=== PATIENT | female | born 1995 | race Caucasian/White ===

== ENCOUNTER 2022-12-12 07:52 | Inpatient (IN) ==
[2022-12-12] MEDS ORDERED: OXYTOCIN 30 UNITS/500 ML BAG IV PRN (08:09)
[2022-12-12] MEDS ORDERED: LIDOCAINE 1% LOCAL 20 ML VIAL INFIL PRN (08:09)
[2022-12-12 09:00] LABS: Hematocrit (blood only) 32.3 % (37.0-47.0); Hemoglobin 10.9 g/dl (12.0-16.0); Mean Corpuscular Hemoglobin 29.8 pg (25.0-34.0); Mean Corpuscular Hgb Conc 33.7 g/dL (32.0-36.0); Mean Corpuscular Volume 88.3 fL (80.0-100.0); Mean Platelet Volume 11.5 fL (9.4-12.4); Platelet Count 276 K/uL (130-400); RDW Coefficient of Variation 15.3 % (11.5-14.5); RDW Standard Deviation 49.1 fL (36.4-46.3); Red Blood Count 3.66 M/uL (4.20-5.40); White Blood Count 9.56 K/ul (4.8-10.8)
[2022-12-12] MEDS: OXYTOCIN 30 UNITS/500 ML BAG IV PRN (10:10)
--- NOTE | 2022-12-12 11:57 | History & Physical Report ---
Date of Service December 12, 2022 Assessment & Plan (1) Supervision of normal first : Plan: IUP at 39-5/7 weeks for induction of labor because SLE history. A cervical balloon was successfully placed the morning of admission. Begin Pitocin augmentation of her labor. Epidural when requested. Anticipate vaginal . Admission and Anticipated Discharge Date Admission Date: December 12, 2022 History of Present Illness Primary Care Provider: Roseanne Sagastume MD Patient is a 27-year-old G1, P0 female EDC 12/14/2022 who presents for induction of labor because her has been complicated by SLE history. SSA and SSB antibodies were negative. testing has been reassuring. Last growth scan at 36 weeks reveals an AGA . GBS negative. Her cervix was noted to be unfavorable the day prior to her induction. The cervical balloon will be placed today prior to starting Pitocin augmentation of her labor. Allergies Allergy/AdvReac Type Severity Reaction Status Date / Time No Known Drug Allergies Allergy Unknown Verified 12/12/22 08:14 tree nut Allergy Anaphylaxis Verified 12/12/22 08:14 Home Medications Medication Instructions Recorded Confirmed Type hydroxychloroquine 200 mg tablet 400 mg PO HS 01/30/21 12/12/22 History aspirin 81 mg tablet,delayed 81 mg PO DAILY 04/30/22 12/12/22 History release prenat.vits,keturah,[id number] 1 tab PO DAILY 05/07/22 12/12/22 History pyridoxine (vitamin B6) 1 tab PO DAILY 06/09/22 12/12/22 History doxylamine succinate 25 mg tablet 25 mg PO Q6H PRN Nausea And 07/30/22 12/12/22 History (Unisom (doxylamine)) Vomiting metoclopramide HCl 10 mg tablet 10 mg PO TID PRN nausea and 12/04/22 12/12/22 Rx (Reglan) vomiting #60 tabs Patient History Medical History (Updated 12/12/22 @ 08:13 by Miguelina Jurado RN) Anxiety was on meds prior to Depression was on meds prior to History of migraine headaches no meds IBS (irritable bowel syndrome) Low lying placenta without hemorrhage, antepartum resolved at 28 weeks Lupus on hydroxychloroquine Varicella vaccination Surgical History History of anesthesia reaction Woke up in panic attack S/P wisdom tooth extraction Family History Grandfather Colorectal cancer Mother Genetic disorder IBS (irritable bowel syndrome) Grandmother (Maternal) Ovarian cancer Grandfather (Maternal) Colon cancer Father No problems noted. Other No pertinent family history Denies family history of Prostate cancer Myocardial infarction Breast cancer Social History (Updated 12/12/22 @ 08:14 by Miguelina Jurado RN) Smoking Status: Never smoker Second Hand Exposure: No; Hx Alcohol Use: No Hx Substance Use: No Preferred Language: Khmer Communication Ability: Effective Visual Impairment: No Limitations Hearing Ability: Normal Auto Body Mechanic Required: No Beliefs That Will Affect Care: None marital status: Single marital status details: ayaz Gonzalez (27) [phone] Current Living Situation: Significant Other and Other Current Living Situation Comment: lives with fob, roomate, dog, parakeet current occupational status: employed and student current occupation: Grad student and instructor [employer] Feels Safe at Home: Yes Safety Concerns: Feels Safe At This Time Childhood Exposure to Second-Hand Smoke: No Dental Care, Regularly: Yes Physical Activity Frequency: 3-4 Times per Week Seatbelt Use: always Sunscreen Use: Yes Assistive Devices: Glasses Review of Systems All systems reviewed & are unremarkable except as noted in HPI & below Physical Exam Constitutional: WD/WN, vitals as above Psychiatric: A+Ox3, euthymic affect Genitourinary: OB Exam Abdomen: + vertex, + estimated weight (8-9 pounds ) and + irregular contractions (rare) Manual OB Exam: + cervical dilation fingertip, + cervical effacement 50% and + station -1 OB Exam Monitor Tracing: + external FHT monitor used, + external uterine monitor used, + category I and + normal FHT variability A speculum was placed vaginally and the cervix was visualized. A Rivera catheter was placed to the level of the internal os. The balloon was then filled with 40 cc of sterile water. The catheter was then placed on traction and secured to her left thigh. Patient tolerated the procedure well. Results & Data Vital Signs (Past 12 Hours) Vital Signs Temp Pulse Resp BP 12/12/22 11:12 78 115/73 12/12/22 10:12 85 115/71 12/12/22 08:26 89 109/69 12/12/22 08:09 98.1 F 18 Coding Level of Care Code None Diagnoses Supervision of normal first Z34.00
[2022-12-12] MEDS ORDERED: BUTORPHANOL TARTRATE 1 MG/ML VIAL IV PRN (13:59)
--- NOTE | 2022-12-12 16:05 | Labor Progress Brief Note ---
Date of Service December 12, 2022 Subjective cervical balloon delivered pitocin at 10 mu FHT's Category 1 cervix exam- 4-5cm/80/-2 AROM for very light mec stained fluid epidural when requested Assessment & Plan Admission and Anticipated Discharge Date Admission Date: December 12, 2022 Results & Data Vital Signs (Past 12 Hours) Vital Signs Temp Pulse Resp BP 12/12/22 15:04 16 12/12/22 15:04 98.1 F 16 12/12/22 15:20 77 107/65 12/12/22 14:13 88 114/82 12/12/22 13:12 86 112/76 12/12/22 12:13 77 115/73 12/12/22 11:00 16 12/12/22 11:00 98.1 F 16 12/12/22 11:12 78 115/73 12/12/22 10:12 85 115/71 12/12/22 08:26 89 109/69 12/12/22 08:09 98.1 F 18 Coding Level of Care Code None Diagnoses
[2022-12-12] MEDS: LACTATED RINGER'S 1,000 ML IV PRN ×3 (18:01→23:00)
[2022-12-12] MEDS ORDERED: fentaNYL citrate PF 100 MCG/2 ML VIAL ONE (18:08)
[2022-12-12] MEDS ORDERED: ePHEDrine sulfate 50 MG/ML AMP ONE (18:08)
[2022-12-12] MEDS ORDERED: SODIUM CHLORIDE 0.9% PF INJ 10 ML VIAL ONE (18:08)
[2022-12-12] MEDS ORDERED: LIDOCAINE 2%/EPINEPHRINE 1:200,000 20 ML PF ONE (18:09)
[2022-12-12] MEDS ORDERED: fentaNYL 2MCG/ML ROPIVACAINE 1.25MG/ML 100 ML BAG EPI ONE (18:09)
[2022-12-12] MEDS ORDERED: BUPIVACAINE 0.25% PF 30 ML VIAL ONE (18:09)
[2022-12-12] MEDS ORDERED: ePHEDrine sulfate 50 MG/ML AMP IV PRN (18:22)
[2022-12-12] MEDS ORDERED: NALOXONE HCL 0.4 MG/1 ML VIAL/CARP IV PRN (18:22)
[2022-12-12] MEDS ORDERED: ONDANSETRON INJ 2 MG/ML 2 ML VIAL IV PRN (18:22)
[2022-12-12] MEDS ORDERED: NALBUPHINE HCL INJ 10 MG/ML AMP IV PRN (18:22)
[2022-12-12] MEDS ORDERED: diphenhydrAMINE 50 MG/ML VIAL IV PRN (18:22)
[2022-12-12] MEDS ORDERED: NALOXONE HCL 1 MG in SODIUM CHLORIDE 0.9% 1000ML 1,000 ML IV PRN (18:22)
--- NOTE | 2022-12-12 18:22 | Anesthesiology Consultation ---
Date of Service December 12, 2022 Assessment & Plan ASA ASA3 Proposed Anesthesia Anesthesia Type: Labor Epidural Risk / Benefits Reviewed With: PT / POA / Parent / Guardian, Accepts Plan and Informed Consent Obtained History Height/Weight Height: 5 ft 11 in Weight: 101.605 kg Allergies Allergy/AdvReac Type Severity Reaction Status Date / Time No Known Drug Allergies Allergy Unknown Verified 12/12/22 08:14 tree nut Allergy Anaphylaxis Verified 12/12/22 08:14 Medications Home Medications Medication Instructions Recorded Confirmed Last Taken hydroxychloroquine 200 mg tablet 400 mg PO HS 01/30/21 12/12/22 12/12/22 aspirin 81 mg tablet,delayed 81 mg PO DAILY 04/30/22 12/12/22 12/12/22 release prenat.vits,keturah,duo-[id number]-aucrc 1 tab PO DAILY 05/07/22 12/12/22 12/12/22 pyridoxine (vitamin B6) 1 tab PO DAILY 06/09/22 12/12/22 12/12/22 doxylamine succinate 25 mg tablet 25 mg PO Q6H PRN Nausea And 07/30/22 12/12/22 12/12/22 (Unisom (doxylamine)) Vomiting metoclopramide HCl 10 mg tablet 10 mg PO TID PRN nausea and 12/04/22 12/12/22 12/12/22 (Reglan) vomiting #60 tabs Active Medications Generic Name Dose Route Start Last Admin Trade Name Freq PRN Reason Stop Dose Admin Lactated Ringer's 1,000 mls @ 125 mls/hr 12/12/22 08:09 12/12/22 18:42 Lr IV 12/14/22 08:08 125 mls/hr .Q8H PRN Infusion L&D Protocol Protocol Oxytocin 30 units in 500 mls @ 16 mls/hr 12/12/22 08:12 12/12/22 17:10 Pitocin IV 12/14/22 08:11 0.96 units/hr .Q24H PRN 16 mls/hr Labor Induction/Augmentation Titration Protocol 0.96 UNITS/HR Past Medical History Medical History Anxiety was on meds prior to Depression was on meds prior to History of migraine headaches no meds IBS (irritable bowel syndrome) Low lying placenta without hemorrhage, antepartum resolved at 28 weeks Lupus on hydroxychloroquine Varicella vaccination Exercise / Class Metabolic Activity II 4-5 Yardwork/Stairs/Walk up hill Past Family History Family History Grandfather Colorectal cancer Mother Genetic disorder grandfather: colon polyps mother IBS (irritable bowel syndrome) Grandmother (Maternal) Ovarian cancer Grandfather (Maternal) Colon cancer Father No problems noted. Other No pertinent family history Denies family history of Prostate cancer Myocardial infarction Breast cancer Past Surgical History Surgical History History of anesthesia reaction Woke up in panic attack S/P wisdom tooth extraction Past Anesthesia History No Hx of Anesthesia Complications and No Family Hx of Anesthesia Complications History of PONV No Hx of PONV and No Hx of Motion Sickness Social History Smoking Status: Never smoker Hx Alcohol Use: No Hx Substance Use: No substance use type: does not use Review of Systems denies fever/cough/ colds/ chest pain/ SOB/ ANALI denies ANALI Physical Exam Vital Signs Last Vital Signs Temp 36.6 C 12/12/22 17:00 Pulse 91 H 12/12/22 19:02 Resp 16 12/12/22 15:04 BP 116/76 12/12/22 19:02 Pulse Ox 98 12/12/22 19:01 ENMT Mouth: no TMJ abnormality and no dentition abnormality Thyromental Distance: > or= 3.5 Finger Breadths Mallampati Class: II Neck neck extension not limited Respiratory normal respiratory effort; no respiratory distress Auscultation: lungs clear to auscultation bilaterally Cardiovascular Rate/Rhythm: regular rate and regular rhythm Neurologic moves all extremities Psychiatric Orientation: alert and oriented x 3 Testing Laboratory Results 12/12/22 08:35
[2022-12-12] MEDS: HYDROXYCHLOROQUINE SULFATE 200 MG TAB PO SCH (21:06)
[2022-12-13] MEDS: OXYTOCIN 30 UNITS/500 ML BAG IV PRN (00:36)
[2022-12-13] MEDS ORDERED: ACETAMINOPHEN 500 MG TAB ONE (01:05)
[2022-12-13] MEDS: ACETAMINOPHEN 500 MG TAB PO PRN ×2 (01:07→09:10)
[2022-12-13] MEDS: fentaNYL 2MCG/ML ROPIVACAINE 1.25MG/ML 100 ML BAG EPI PRN ×2 (01:50→06:17)
--- NOTE | 2022-12-13 02:57 | Labor Progress Brief Note ---
Date of Service December 13, 2022 Subjective pit had been temporarily stopped for 30 minutes at midnight because of inadequate ctn pattern and pit at 30 milliunits pit restarted and now at 21 milliunits contractions are every 2- 4 minutes mild to moderate she is now feeling more pelvic pressure cervix exam 7cm/90/-2 FHT's category 1 will continue with pitocin augmentation Assessment & Plan Admission and Anticipated Discharge Date Admission Date: December 12, 2022 Results & Data Vital Signs (Past 12 Hours) Vital Signs Temp Pulse Resp BP Pulse Ox 12/12/22 19:00 18 12/12/22 19:10 97.9 F 18 12/13/22 02:51 112 H 97 12/13/22 02:46 92 H 97 12/13/22 02:41 99 H 98 12/13/22 02:40 102 H 108/71 12/13/22 02:36 90 98 12/13/22 02:30 18 12/13/22 02:30 18 12/13/22 02:31 94 H 98 12/13/22 02:26 97 H 97 12/13/22 02:24 90 112/66 12/13/22 02:20 97.9 F 12/13/22 02:21 91 H 98 12/13/22 02:16 95 H 98 12/13/22 02:11 90 97 12/13/22 02:08 88 113/64 12/13/22 02:06 92 H 97 12/13/22 02:00 18 12/13/22 02:00 18 12/13/22 02:01 94 H 97 12/13/22 01:56 98 H 98 12/13/22 01:53 99 H 105/68 12/13/22 01:51 100 H 96 12/13/22 01:46 121 H 97 12/13/22 01:41 90 97 12/13/22 01:39 92 H 108/64 12/13/22 01:30 18 12/13/22 01:30 18 12/13/22 01:36 96 H 98 12/13/22 01:31 93 H 98 12/13/22 01:26 94 H 98 12/13/22 01:23 97 H 109/64 12/13/22 01:21 91 H 98 12/13/22 01:16 98 H 99 12/13/22 01:11 99 H 98 12/13/22 01:09 90 103/57 L 12/13/22 01:06 94 H 99 12/13/22 01:01 94 H 98 12/13/22 01:00 20 12/13/22 01:00 20 12/13/22 00:56 97 H 99 12/13/22 00:30 18 12/13/22 00:30 18 12/13/22 00:53 93 H 98/55 L 12/13/22 00:51 94 H 99 12/13/22 00:46 94 H 98 12/13/22 00:41 116 H 98 12/13/22 00:39 109/62 12/13/22 00:36 90 98 12/13/22 00:31 94 H 98 12/13/22 00:26 93 H 98 12/13/22 00:24 93 H 91/50 L 12/13/22 00:21 93 H 98 12/13/22 00:16 94 H 99 12/13/22 00:11 97 H 98 12/13/22 00:08 93 H 100/56 L 12/13/22 00:06 94 H 97 12/13/22 00:01 96 H 99 12/13/22 00:00 18 12/13/22 00:00 98.4 F 18 12/12/22 23:56 94 H 99 12/12/22 23:53 89 102/58 L 12/12/22 23:51 91 H 98 12/12/22 23:00 20 12/12/22 23:00 20 12/12/22 23:46 96 H 98 12/12/22 23:41 98 H 98 12/12/22 23:38 95 H 100/58 L 12/12/22 23:36 91 H 99 12/12/22 23:31 97 H 100 12/12/22 23:26 110 H 99 12/12/22 23:27 116 H 92 12/12/22 23:24 85 111/57 L 12/12/22 23:21 89 98 12/12/22 23:16 89 98 12/12/22 23:11 89 98 12/12/22 23:08 92 H 108/59 L 12/12/22 23:06 84 98 12/12/22 23:01 91 H 98 12/12/22 22:56 97 H 106/50 L 100 12/12/22 22:51 102 H 99 12/12/22 22:46 95 H 100 12/12/22 22:41 84 98 12/12/22 22:30 18 12/12/22 22:30 18 12/12/22 22:38 80 91/50 L 12/12/22 22:36 92 H 99 12/12/22 22:31 84 100 12/12/22 22:26 83 94/50 L 98 12/12/22 22:24 81 88/51 L 12/12/22 22:21 86 92 12/12/22 22:00 18 12/12/22 22:00 18 12/12/22 22:16 89 100 12/12/22 22:11 82 99 12/12/22 22:10 93 12/12/22 22:10 82 12/12/22 22:10 82 92/56 L 12/12/22 22:06 90 100 12/12/22 22:01 73 99 12/12/22 21:56 78 99 12/12/22 21:53 73 107/66 12/12/22 21:51 77 98 12/12/22 21:46 78 98 12/12/22 21:41 79 98 12/12/22 21:39 78 106/67 12/12/22 21:36 84 98 12/12/22 21:30 20 12/12/22 21:30 20 12/12/22 21:31 89 99 12/12/22 21:26 94 H 100 12/12/22 21:24 82 105/58 L 12/12/22 21:21 79 100 12/12/22 21:10 97.7 F 12/12/22 21:00 18 12/12/22 21:00 18 12/12/22 21:16 80 100 12/12/22 21:11 83 99 12/12/22 21:06 77 99 12/12/22 21:01 80 108/63 99 12/12/22 20:57 77 107/60 12/12/22 20:56 75 99 12/12/22 20:51 81 102/58 L 98 12/12/22 20:47 75 101/59 L 12/12/22 20:46 77 98 12/12/22 20:41 99 12/12/22 20:41 78 12/12/22 20:41 77 102/64 12/12/22 20:36 77 99 12/12/22 20:37 78 106/64 12/12/22 20:31 83 110/64 99 12/12/22 20:27 80 115/60 12/12/22 20:26 75 97 12/12/22 20:00 20 12/12/22 20:00 20 12/12/22 20:22 77 107/72 12/12/22 20:23 75 113/60 12/12/22 20:21 85 98 12/12/22 20:16 89 98 12/12/22 20:17 88 92/56 L 12/12/22 20:11 79 99/60 L 98 12/12/22 20:07 77 105/59 L 12/12/22 20:06 76 98 12/12/22 20:01 84 99 12/12/22 20:02 83 102/58 L 12/12/22 19:56 76 98 12/12/22 19:57 76 103/57 L 12/12/22 19:51 71 99 12/12/22 19:52 72 98/59 L 12/12/22 19:48 81 103/62 12/12/22 19:46 82 97 12/12/22 19:43 83 102/61 12/12/22 19:41 82 98 12/12/22 19:36 98 12/12/22 19:36 91 H 12/12/22 19:36 88 103/61 12/12/22 19:30 18 12/12/22 19:30 18 12/12/22 19:31 84 98 12/12/22 19:32 83 104/61 12/12/22 19:26 89 99 12/12/22 19:27 85 103/55 L 12/12/22 19:21 94 H 99 12/12/22 19:20 83 104/61 12/12/22 19:18 88 100/60 12/12/22 19:16 89 106/66 98 12/12/22 19:14 86 110/64 12/12/22 19:12 82 100/57 L 12/12/22 19:11 97 12/12/22 19:11 84 12/12/22 19:11 90 91/62 L 12/12/22 19:08 88 112/64 12/12/22 19:06 96 H 12/12/22 19:06 93 H 111/65 97 12/12/22 19:04 90 112/70 12/12/22 19:02 91 H 116/76 12/12/22 19:01 90 98 12/12/22 19:00 89 111/68 12/12/22 18:58 88 106/62 12/12/22 18:56 92 H 100 12/12/22 18:57 95 H 103/67 12/12/22 18:51 81 100 12/12/22 18:46 84 98 12/12/22 18:41 89 100 12/12/22 18:36 88 98 12/12/22 18:31 88 99 12/12/22 18:26 89 99 12/12/22 18:12 81 106/61 12/12/22 17:15 90 113/71 12/12/22 17:00 97.9 F 12/12/22 16:13 83 113/73 12/12/22 15:04 16 12/12/22 15:04 98.1 F 16 12/12/22 15:20 77 107/65 Coding Level of Care Code None Diagnoses
[2022-12-13] MEDS: LACTATED RINGER'S 1,000 ML IV PRN (04:50)
[2022-12-13] MEDS ORDERED: NURSING L&D Epidural Breakthrough Pain Update ONE (04:51)
[2022-12-13] MEDS ORDERED: METOCLOPRAMIDE HCL INJ 5 MG/ML 2 ML VIAL IV STA (07:17)
--- NOTE | 2022-12-13 07:18 | Labor Progress Brief Note ---
Date of Service December 13, 2022 Subjective Reason For Note: Routine Evaluation continues to feel pressure now but no more intense pit at 23 milliunits Q2-3 minute ctns FHT's category 1 very nauseous- will give Reglan IV as zofran can interact with hydroxychloroquine cervix exam: /-1 with molding continue with induction Assessment & Plan Admission and Anticipated Discharge Date Admission Date: December 12, 2022 Results & Data Vital Signs (Past 12 Hours) Vital Signs Temp Pulse Resp BP Pulse Ox 12/13/22 07:11 107 H 98 12/13/22 07:09 108 H 106/64 12/13/22 07:06 110 H 99 12/13/22 07:01 111 H 97 12/13/22 06:56 106 H 100 12/13/22 06:54 107 H 116/62 89 L 12/13/22 06:51 105 H 100 12/13/22 06:46 107 H 98 12/13/22 06:41 106 H 98 12/13/22 06:38 103 H 118/64 12/13/22 06:36 107 H 97 12/13/22 06:31 103 H 98 12/13/22 06:26 110 H 100 12/13/22 06:24 109 H 132/75 12/13/22 06:21 108 H 97 12/13/22 06:15 98.2 F 12/13/22 06:16 109 H 99 12/13/22 06:11 128 H 139/94 98 12/13/22 06:06 112 H 100 12/13/22 06:01 118 H 99 12/13/22 05:56 114 H 98 12/13/22 05:54 112 H 119/75 12/13/22 05:51 119 H 98 12/13/22 05:46 120 H 98 12/13/22 05:41 122 H 98 12/13/22 05:38 121 H 119/62 12/13/22 05:36 119 H 98 12/13/22 05:31 125 H 98 12/13/22 05:26 108 H 98 12/13/22 05:23 107 H 123/65 12/13/22 05:21 102 H 99 12/13/22 05:16 102 H 98 12/13/22 05:11 100 H 98 12/13/22 05:08 95 H 121/69 04/15/23 05:06 98 H 97 12/13/22 05:01 103 H 98 12/13/22 04:56 102 H 98 12/13/22 04:54 101 H 125/73 12/13/22 04:51 105 H 98 12/13/22 04:46 127 H 97 12/13/22 04:41 102 H 97 12/13/22 04:39 109 H 114/72 12/13/22 04:36 99 H 96 12/13/22 04:31 98 H 96 12/13/22 04:26 97 H 96 12/13/22 04:23 96 H 101/57 L 12/13/22 04:21 99 H 96 12/13/22 04:16 97 H 97 12/13/22 04:11 95 H 97 12/13/22 04:08 88 101/60 12/13/22 04:06 93 H 98 12/13/22 04:00 18 12/13/22 04:00 18 12/13/22 04:01 104 H 98 12/13/22 03:56 87 96 12/13/22 03:54 93 H 100/58 L 90 12/13/22 03:51 90 96 12/13/22 03:46 90 96 12/13/22 03:41 88 96 12/13/22 03:38 88 95/51 L 94 12/13/22 03:36 90 95 12/13/22 03:31 91 H 96 12/13/22 03:26 93 H 98 12/13/22 03:24 90 105/58 L 12/13/22 03:21 91 H 97 12/13/22 03:16 90 97 12/13/22 03:11 91 H 97 12/13/22 03:08 86 102/59 L 12/13/22 03:06 90 97 12/13/22 03:01 89 97 12/13/22 02:56 88 97 12/13/22 02:54 91 H 108/57 L 12/13/22 02:51 112 H 97 12/13/22 02:46 92 H 97 12/13/22 02:41 99 H 98 12/13/22 02:40 102 H 108/71 12/13/22 02:36 90 98 12/13/22 02:30 18 12/13/22 02:30 18 12/13/22 02:31 94 H 98 12/13/22 02:26 97 H 97 12/13/22 02:24 90 112/66 12/13/22 02:20 97.9 F 12/13/22 02:21 91 H 98 12/13/22 02:16 95 H 98 12/13/22 02:11 90 97 12/13/22 02:08 88 113/64 12/13/22 02:06 92 H 97 12/13/22 02:00 18 12/13/22 02:00 18 12/13/22 02:01 94 H 97 12/13/22 01:56 98 H 98 12/13/22 01:53 99 H 105/68 12/13/22 01:51 100 H 96 12/13/22 01:46 121 H 97 12/13/22 01:41 90 97 12/13/22 01:39 92 H 108/64 12/13/22 01:30 18 12/13/22 01:30 18 12/13/22 01:36 96 H 98 12/13/22 01:31 93 H 98 12/13/22 01:26 94 H 98 12/13/22 01:23 97 H 109/64 12/13/22 01:21 91 H 98 12/13/22 01:16 98 H 99 12/13/22 01:11 99 H 98 12/13/22 01:09 90 103/57 L 12/13/22 01:06 94 H 99 12/13/22 01:01 94 H 98 12/13/22 01:00 20 12/13/22 01:00 20 12/13/22 00:56 97 H 99 12/13/22 00:30 18 12/13/22 00:30 18 12/13/22 00:53 93 H 98/55 L 12/13/22 00:51 94 H 99 12/13/22 00:46 94 H 98 12/13/22 00:41 116 H 98 12/13/22 00:39 109/62 12/13/22 00:36 90 98 12/13/22 00:31 94 H 98 12/13/22 00:26 93 H 98 12/13/22 00:24 93 H 91/50 L 12/13/22 00:21 93 H 98 12/13/22 00:16 94 H 99 12/13/22 00:11 97 H 98 12/13/22 00:08 93 H 100/56 L 12/13/22 00:06 94 H 97 12/13/22 00:01 96 H 99 12/13/22 00:00 18 12/13/22 00:00 98.4 F 18 12/12/22 23:56 94 H 99 12/12/22 23:53 89 102/58 L 12/12/22 23:51 91 H 98 12/12/22 23:00 20 12/12/22 23:00 20 12/12/22 23:46 96 H 98 12/12/22 23:41 98 H 98 12/12/22 23:38 95 H 100/58 L 12/12/22 23:36 91 H 99 12/12/22 23:31 97 H 100 12/12/22 23:26 110 H 99 12/12/22 23:27 116 H 92 12/12/22 23:24 85 111/57 L 12/12/22 23:21 89 98 12/12/22 23:16 89 98 12/12/22 23:11 89 98 12/12/22 23:08 92 H 108/59 L 12/12/22 23:06 84 98 12/12/22 23:01 91 H 98 12/12/22 22:56 97 H 106/50 L 100 12/12/22 22:51 102 H 99 12/12/22 22:46 95 H 100 12/12/22 22:41 84 98 12/12/22 22:30 18 12/12/22 22:30 18 12/12/22 22:38 80 91/50 L 12/12/22 22:36 92 H 99 12/12/22 22:31 84 100 12/12/22 22:26 83 94/50 L 98 12/12/22 22:24 81 88/51 L 12/12/22 22:21 86 92 12/12/22 22:00 18 12/12/22 22:00 18 12/12/22 22:16 89 100 12/12/22 22:11 82 99 12/12/22 22:10 93 12/12/22 22:10 82 12/12/22 22:10 82 92/56 L 12/12/22 22:06 90 100 04/14/23 22:01 73 99 12/12/22 21:56 78 99 12/12/22 21:53 73 107/66 12/12/22 21:51 77 98 12/12/22 21:46 78 98 12/12/22 21:41 79 98 12/12/22 21:39 78 106/67 12/12/22 21:36 84 98 12/12/22 21:30 20 12/12/22 21:30 20 12/12/22 21:31 89 99 12/12/22 21:26 94 H 100 12/12/22 21:24 82 105/58 L 12/12/22 21:21 79 100 12/12/22 21:10 97.7 F 12/12/22 21:00 18 12/12/22 21:00 18 12/12/22 21:16 80 100 12/12/22 21:11 83 99 12/12/22 21:06 77 99 12/12/22 21:01 80 108/63 99 12/12/22 20:57 77 107/60 12/12/22 20:56 75 99 12/12/22 20:51 81 102/58 L 98 12/12/22 20:47 75 101/59 L 12/12/22 20:46 77 98 12/12/22 20:41 99 12/12/22 20:41 78 12/12/22 20:41 77 102/64 12/12/22 20:36 77 99 12/12/22 20:37 78 106/64 12/12/22 20:31 83 110/64 99 12/12/22 20:27 80 115/60 12/12/22 20:26 75 97 12/12/22 20:00 20 12/12/22 20:00 20 12/12/22 20:22 77 107/72 12/12/22 20:23 75 113/60 12/12/22 20:21 85 98 12/12/22 20:16 89 98 12/12/22 20:17 88 92/56 L 12/12/22 20:11 79 99/60 L 98 12/12/22 20:07 77 105/59 L 12/12/22 20:06 76 98 12/12/22 20:01 84 99 12/12/22 20:02 83 102/58 L 04/14/23 19:56 76 98 12/12/22 19:57 76 103/57 L 12/12/22 19:51 71 99 12/12/22 19:52 72 98/59 L 12/12/22 19:48 81 103/62 12/12/22 19:46 82 97 12/12/22 19:43 83 102/61 12/12/22 19:41 82 98 12/12/22 19:36 98 12/12/22 19:36 91 H 12/12/22 19:36 88 103/61 12/12/22 19:30 18 12/12/22 19:30 18 12/12/22 19:31 84 98 12/12/22 19:32 83 104/61 12/12/22 19:26 89 99 12/12/22 19:27 85 103/55 L 12/12/22 19:21 94 H 99 12/12/22 19:20 83 104/61 12/12/22 19:18 88 100/60 12/12/22 19:16 89 106/66 98 Coding Level of Care Code None Diagnoses
[2022-12-13] MEDS ORDERED: METOCLOPRAMIDE HCL INJ 5 MG/ML 2 ML VIAL ONE ×2 (07:20→10:26)
[2022-12-13] MEDS ORDERED: CITRIC ACID/SODIUM CITRATE 15 ML UDC ONE (10:25)
[2022-12-13] MEDS ORDERED: PHENYLEPHRINE HCL 10 MG/ML VIAL ONE (10:26)
[2022-12-13] MEDS ORDERED: OXYTOCIN 10 UNITS/ML 10ML VIAL ONE ×5 (10:26→11:36)
[2022-12-13] MEDS ORDERED: MoRPHine SULFATE PF 1 MG/ML 10 ML AMP/VIAL ONE (10:26)
[2022-12-13] MEDS ORDERED: fentaNYL citrate PF 100 MCG/2 ML VIAL ONE (10:26)
[2022-12-13] MEDS ORDERED: ePHEDrine sulfate 50 MG/ML AMP ONE (10:26)
[2022-12-13] MEDS ORDERED: CITRIC ACID/SODIUM CITRATE 15 ML UDC PO SCH (10:30)
[2022-12-13] MEDS ORDERED: LACTATED RINGER'S 1,000 ML IV SCH (10:30)
--- NOTE | 2022-12-13 10:30 | Labor Progress Brief Note ---
Date of Service December 13, 2022 Subjective Patient comfortable with epidural, has no sensation of pelvic pressure right now. Assessment & Plan (1) Failure to progress in labor: Plan: Course of labor reviewed with prior MD at hand-off, in room with patient / mom / FOB / RN as well. Re-examined now, with no evidence of change. Patient is fatigued and frustrated/concerned with slow progress and course of labor. Patient's mom voices concerns about possible inability to deliver vaginally. Nikolai pattern too frequent to allow increased dosing of pitocin without IUPC at this time. We reviewed options: Reposition to attempt to return to a Cat 1 F[address], then place IUPC and continue to titrate to adequate MVU. Explained pelvis/passenger/power and that we can try to work on "power" aspect by replacing IUPC. Other option is to move to without further attempts at IOL. Discussed there is not currently an emergency that forces our move to , it's reasonable to choose either of the above options, and answered all questions from patient/mom/FOB to their stated satisfaction, then left the room to allow them to discuss and decide. The choice was made and communicated to staff that patient wanted to proceed to . Admission and Anticipated Discharge Date Admission Date: December 12, 2022 Physical Exam Genitourinary: Cervix unchanged from prior exam. FHT 155 mod [place] +acc +late decels Significant molding noted Nikolai Q1-2, sometimes poorly traced with external Pit @ 23 [address] with red-stained urine in bag Results & Data Vital Signs (Past 12 Hours) Vital Signs Temp Pulse Resp BP Pulse Ox 12/13/22 08:47 99.5 F 18 12/13/22 08:00 20 12/13/22 07:30 18 12/13/22 07:00 98.1 F 18 12/13/22 10:16 106 H 98 12/13/22 10:11 110 H 98 12/13/22 10:08 116 H 116/71 12/13/22 10:06 118 H 97 12/13/22 10:01 104 H 99 12/13/22 09:56 114 H 98 12/13/22 09:54 113 H 105/56 L 12/13/22 09:51 115 H 96 12/13/22 09:46 116 H 97 12/13/22 09:41 112 H 97 12/13/22 09:30 20 12/13/22 09:30 20 12/13/22 09:38 114 H 104/56 L 12/13/22 09:36 113 H 97 12/13/22 09:31 111 H 97 12/13/22 09:26 109 H 97 12/13/22 09:24 110 H 105/61 12/13/22 09:21 111 H 97 12/13/22 09:16 109 H 97 12/13/22 09:11 112 H 98 12/13/22 09:09 117 H 113/64 12/13/22 09:06 108 H 97 12/13/22 09:01 111 H 97 12/13/22 08:56 109 H 98 12/13/22 08:54 110 H 105/59 L 12/13/22 08:51 111 H 99 12/13/22 08:46 108 H 98 12/13/22 08:41 110 H 98 12/13/22 08:38 109 H 117/64 12/13/22 08:36 110 H 97 12/13/22 08:30 18 12/13/22 08:30 18 12/13/22 08:31 109 H 97 12/13/22 08:26 109 H 97 12/13/22 08:24 106 H 118/66 12/13/22 08:21 109 H 98 12/13/22 08:16 111 H 97 12/13/22 08:11 111 H 97 12/13/22 08:08 110 H 109/56 L 12/13/22 08:06 109 H 96 12/13/22 08:01 113 H 97 12/13/22 07:56 111 H 97 12/13/22 07:54 110 H 104/59 L 12/13/22 07:51 109 H 97 12/13/22 07:46 112 H 98 12/13/22 07:00 20 12/13/22 07:00 20 12/13/22 07:41 135 H 97 12/13/22 07:39 117 H 111/68 12/13/22 07:36 122 H 98 12/13/22 07:31 108 H 98 12/13/22 07:26 104 H 98 12/13/22 07:23 102 H 106/69 12/13/22 07:21 116 H 97 12/13/22 07:16 100 H 97 12/13/22 07:11 107 H 98 12/13/22 07:09 108 H 106/64 12/13/22 07:06 110 H 99 12/13/22 07:01 111 H 97 12/13/22 06:56 106 H 100 12/13/22 06:54 107 H 116/62 89 L 12/13/22 06:51 105 H 100 12/13/22 06:46 107 H 98 12/13/22 06:41 106 H 98 12/13/22 06:38 103 H 118/64 12/13/22 06:36 107 H 97 12/13/22 06:31 103 H 98 12/13/22 06:26 110 H 100 12/13/22 06:24 109 H 132/75 12/13/22 06:21 108 H 97 12/13/22 06:15 98.2 F 12/13/22 06:16 109 H 99 12/13/22 06:11 128 H 139/94 98 12/13/22 06:06 112 H 100 12/13/22 06:01 118 H 99 12/13/22 05:56 114 H 98 12/13/22 05:54 112 H 119/75 12/13/22 05:51 119 H 98 12/13/22 05:46 120 H 98 12/13/22 05:41 122 H 98 12/13/22 05:38 121 H 119/62 12/13/22 05:36 119 H 98 12/13/22 05:31 125 H 98 12/13/22 05:26 108 H 98 12/13/22 05:23 107 H 123/65 12/13/22 05:21 102 H 99 12/13/22 05:16 102 H 98 12/13/22 05:11 100 H 98 12/13/22 05:08 95 H 121/69 12/13/22 05:06 98 H 97 12/13/22 05:01 103 H 98 12/13/22 04:56 102 H 98 12/13/22 04:54 101 H 125/73 12/13/22 04:51 105 H 98 12/13/22 04:46 127 H 97 12/13/22 04:41 102 H 97 12/13/22 04:39 109 H 114/72 12/13/22 04:36 99 H 96 12/13/22 04:31 98 H 96 12/13/22 04:26 97 H 96 12/13/22 04:23 96 H 101/57 L 12/13/22 04:21 99 H 96 12/13/22 04:16 97 H 97 12/13/22 04:11 95 H 97 12/13/22 04:08 88 101/60 12/13/22 04:06 93 H 98 12/13/22 04:00 18 12/13/22 04:00 18 12/13/22 04:01 104 H 98 12/13/22 03:56 87 96 12/13/22 03:54 93 H 100/58 L 90 12/13/22 03:51 90 96 12/13/22 03:46 90 96 12/13/22 03:41 88 96 12/13/22 03:38 88 95/51 L 94 12/13/22 03:36 90 95 12/13/22 03:31 91 H 96 12/13/22 03:26 93 H 98 12/13/22 03:24 90 105/58 L 12/13/22 03:21 91 H 97 12/13/22 03:16 90 97 12/13/22 03:11 91 H 97 12/13/22 03:08 86 102/59 L 12/13/22 03:06 90 97 12/13/22 03:01 89 97 12/13/22 02:56 88 97 12/13/22 02:54 91 H 108/57 L 12/13/22 02:51 112 H 97 12/13/22 02:46 92 H 97 12/13/22 02:41 99 H 98 12/13/22 02:40 102 H 108/71 12/13/22 02:36 90 98 12/13/22 02:30 18 12/13/22 02:30 18 12/13/22 02:31 94 H 98 12/13/22 02:26 97 H 97 12/13/22 02:24 90 112/66 12/13/22 02:20 97.9 F 12/13/22 02:21 91 H 98 12/13/22 02:16 95 H 98 12/13/22 02:11 90 97 12/13/22 02:08 88 113/64 12/13/22 02:06 92 H 97 04/15/23 02:00 18 12/13/22 02:00 18 12/13/22 02:01 94 H 97 12/13/22 01:56 98 H 98 12/13/22 01:53 99 H 105/68 12/13/22 01:51 100 H 96 12/13/22 01:46 121 H 97 12/13/22 01:41 90 97 12/13/22 01:39 92 H 108/64 12/13/22 01:30 18 12/13/22 01:30 18 12/13/22 01:36 96 H 98 12/13/22 01:31 93 H 98 12/13/22 01:26 94 H 98 12/13/22 01:23 97 H 109/64 12/13/22 01:21 91 H 98 12/13/22 01:16 98 H 99 12/13/22 01:11 99 H 98 12/13/22 01:09 90 103/57 L 12/13/22 01:06 94 H 99 12/13/22 01:01 94 H 98 12/13/22 01:00 20 12/13/22 01:00 20 12/13/22 00:56 97 H 99 12/13/22 00:30 18 12/13/22 00:30 18 12/13/22 00:53 93 H 98/55 L 12/13/22 00:51 94 H 99 12/13/22 00:46 94 H 98 12/13/22 00:41 116 H 98 12/13/22 00:39 109/62 12/13/22 00:36 90 98 12/13/22 00:31 94 H 98 12/13/22 00:26 93 H 98 12/13/22 00:24 93 H 91/50 L 12/13/22 00:21 93 H 98 12/13/22 00:16 94 H 99 12/13/22 00:11 97 H 98 12/13/22 00:08 93 H 100/56 L 12/13/22 00:06 94 H 97 12/13/22 00:01 96 H 99 12/13/22 00:00 18 12/13/22 00:00 98.4 F 18 12/12/22 23:56 94 H 99 12/12/22 23:53 89 102/58 L 12/12/22 23:51 91 H 98 12/12/22 23:00 20 12/12/22 23:00 20 12/12/22 23:46 96 H 98 12/12/22 23:41 98 H 98 12/12/22 23:38 95 H 100/58 L 12/12/22 23:36 91 H 99 12/12/22 23:31 97 H 100 12/12/22 23:26 110 H 99 12/12/22 23:27 116 H 92 12/12/22 23:24 85 111/57 L 12/12/22 23:21 89 98 12/12/22 23:16 89 98 12/12/22 23:11 89 98 12/12/22 23:08 92 H 108/59 L 12/12/22 23:06 84 98 12/12/22 23:01 91 H 98 12/12/22 22:56 97 H 106/50 L 100 12/12/22 22:51 102 H 99 12/12/22 22:46 95 H 100 12/12/22 22:41 84 98 12/12/22 22:30 18 12/12/22 22:30 18 12/12/22 22:38 80 91/50 L 12/12/22 22:36 92 H 99 12/12/22 22:31 84 100 12/12/22 22:26 83 94/50 L 98 12/12/22 22:24 81 88/51 L Coding Level of Care Code None Diagnoses Failure to progress in labor O62.2
[2022-12-13] MEDS ORDERED: DEXAMETHASONE SOD INJ 4 MG/ML VIAL ONE (10:45)
[2022-12-13] MEDS ORDERED: PHENYLEPHRINE 100MCG/ML 5ML SYR ONE (11:36)
[2022-12-13] MEDS ORDERED: NALOXONE HCL 0.08 MG in SYRINGE 1.8 ML IV PRN (11:40)
[2022-12-13] MEDS ORDERED: METOCLOPRAMIDE HCL 20 MG in SODIUM CHLORIDE 0.9% 50 ML IV PRN (11:40)
[2022-12-13] MEDS ORDERED: NALBUPHINE HCL INJ 10 MG/ML AMP IV PRN (11:40)
[2022-12-13] MEDS ORDERED: LACTATED RINGER'S 500 ML IV PRN (11:40)
[2022-12-13] MEDS ORDERED: diphenhydrAMINE 50 MG/ML VIAL IV PRN (11:40)
[2022-12-13] MEDS ORDERED: NALOXONE HCL 0.4 MG/1 ML VIAL/CARP IV PRN (11:40)
[2022-12-13] MEDS ORDERED: MoRPHine SULFATE 2 MG/ML CARP IV PRN (11:40)
[2022-12-13] MEDS ORDERED: MoRPHine SULFATE PF 1 MG/ML 10 ML AMP/VIAL INT SPINAL ONE (11:40)
[2022-12-13] MEDS ORDERED: ePHEDrine sulfate 50 MG/ML AMP IV PRN (11:40)
[2022-12-13] MEDS ORDERED: NALOXONE HCL 1 MG in SODIUM CHLORIDE 0.9% 1000ML 1,000 ML IV PRN (11:40)
[2022-12-13] MEDS ORDERED: DC INTRASPINAL MORPHINE SCH (11:45)
[2022-12-13] MEDS ORDERED: NO NARCOTICS OR SEDATIVES SCH (11:45)
[2022-12-13] MEDS ORDERED: SODIUM CHLORIDE 0.9% 1000ML 1,000 ML IV SCH (11:45)
--- NOTE | 2022-12-13 12:03 | Operative Report ---
PG Post Operative Report Pre & Post Diagnosis Operation Date: 12/13/22 11:00 Pre-Op Diagnosis: Failure To Progress In Labor Post-Op Diagnosis: Same; Delivery of a live male child at 1126 I identified the patient and participated in the time-out.: Yes Procedure Operation Date: 12/13/22 11:00 Actual Procedures 1' Low Transverse Section Surgeon Saniya Lamar MD Plow Holder MD Yuni Estimated Blood Loss 650 Findings Consistent with Post-Op Diagnosis Specimens Placenta, Cord blood Anesthesia Type L&D Only Epidural Exists Complications none Disposition Accompanied Patient To Recovery: Yes Disposition: L&D Description of Procedure The patient was placed operating table in the supine position with a leftward tilt. She was prepped and draped in standard sterile fashion. The anesthetic was tested and found to be adequate. A time-out was held, identifying correct patient, procedure, positioning and preoperative antibiotics. There were no concerns. A Pfannenstiel skin incision was made with a knife and taken down to the underlying layer of fascia. The fascia was incised in the midline with the knife and taken out laterally with scissors. The superior edge of the fascial i ncision was grasped, elevated and dissected off the underlying rectus both superiorly and inferiorly. The muscles were bluntly in the midline. The peritoneum was entered bluntly. The incision was then stretched. The bladder retractor was placed. The vesicouterine peritoneum was identified, entered with scissors and taken out laterally with scissors. The bladder flap was created digitally. A hysterotomy incision was created transversely in the lower uterine segment, final entry being accomplished in a blunt manner with the steelscope operator's fingers. Stained amniotic fluid was encountered. The steelscope operator's left hand was used to elevate the head to the hysterotomy. The head was delivered using mild fundal pressure, and the shoulders and body followed without difficulty. The cord was clamped and cut and the infant was then handed off to the awaiting teacher public health. Cord blood was obtained. The placenta was Manually extracted. The uterus was exteriorized and cleared of all clot and debris with moistened laparotomy sponges. The hysterotomy incision was repaired in two layers, the first in a running locked layer, the second in an imbricating layer. At the request of Dr. Morrissey, 10u pitocin was provided in a sterile syringe. She injected this at the uterine fundus to assist in management of uterine atony, with satisfactory improvement in tone. The ovaries and tubes were seen to be normal bilaterally. The uterus was gently replaced in the abdomen, and the gutters were cleared of clot and debris. A final inspection of the hysterotomy revealed a small ooze at the center of the incision which was addressed with a [id number] 1-chromic suture. After this one stitch, there was seen to be good hemostasis. The rectus muscles were allowed to reapproximate naturally. The fascia was then reapproximated with 1 Vicryl in a running nonlocked manner. The fascia was examined and found to be free of defect following closure. The subcutaneous tissue was copiously irrigated and reapproximated with 0-chromic, then the skin edges were closed with 4-0 monocryl in a subcuticular fashion. A dermabond dressing was applied. The murphy was found to be draining red-stained urine at completion of the procedure, consistent with its appearance prior to arrival in the OR pre- procedure (see last labor progress note). I attest to the content of the Intraoperative Record and any orders documented therein. Any exceptions are noted below. I attest to the content of the Intraoperative Record and any orders documented therein. Any exceptions are noted below. OB Procedure Charges 15192
--- NOTE | 2022-12-13 12:04 | Anesthesia Procedure Note ---
Date of Service December 13, 2022 Anesthesia Post Epidural Note Vital Signs Vital Signs: Temp Pulse Resp BP Pulse Ox 36.7 C 116 H 18 184/124 H 98 12/13/22 10:50 12/13/22 11:01 12/13/22 10:50 12/13/22 12:02 12/13/22 11:01 Pain Intensity Abdomen: Pain Intensity: 6 Left Hip: Pain Intensity: 2 Notes Mental Status: alert / awake / arousable and participated in evaluation Nausea / Vomiting: adequately controlled Pain: adequately controlled Airway Patency, RR, SpO2: stable & adequate BP & HR: stable & adequate Hydration State: stable & adequate Neuraxial Anesthesia: was administered and sensory block is resolving Anesthetic Complications: no major complications apparent and Pt Satisfied with anesthetic care Epidural: Removed without complications and With tip intact
--- NOTE | 2022-12-13 12:04 | Anesthesiology Progress Note ---
Date of Service December 13, 2022 Anesthesia Post Procedure Vital Signs Vital Signs: Temp Pulse Resp BP Pulse Ox 12/13/22 10:30 22 12/13/22 10:00 20 12/13/22 08:47 37.5 C 18 12/13/22 08:00 20 12/13/22 07:30 18 12/13/22 07:00 36.7 C 18 12/12/22 19:00 18 12/12/22 19:10 36.6 C 18 12/13/22 12:03 109 H 97 12/13/22 12:02 184/124 H 12/13/22 11:01 116 H 98 12/13/22 10:56 124 H 99 12/13/22 10:53 104 H 132/66 12/13/22 10:51 113 H 98 12/13/22 10:50 18 12/13/22 10:50 36.7 C 18 12/13/22 10:46 108 H 97 12/13/22 10:41 108 H 97 12/13/22 10:39 113 H 133/75 12/13/22 10:36 129 H 99 12/13/22 10:31 111 H 97 12/13/22 10:26 108 H 98 12/13/22 10:23 110 H 116/69 12/13/22 10:21 108 H 98 12/13/22 10:16 106 H 98 12/13/22 10:11 110 H 98 12/13/22 10:08 116 H 116/71 12/13/22 10:06 118 H 97 12/13/22 10:01 104 H 99 12/13/22 09:56 114 H 98 12/13/22 09:54 113 H 105/56 L 12/13/22 09:51 115 H 96 12/13/22 09:46 116 H 97 12/13/22 09:41 112 H 97 12/13/22 09:30 20 12/13/22 09:30 20 12/13/22 09:38 114 H 104/56 L 12/13/22 09:36 113 H 97 12/13/22 09:31 111 H 97 12/13/22 09:26 109 H 97 12/13/22 09:24 110 H 105/61 12/13/22 09:21 111 H 97 12/13/22 09:16 109 H 97 12/13/22 09:11 112 H 98 12/13/22 09:09 117 H 113/64 12/13/22 09:06 108 H 97 12/13/22 09:01 111 H 97 12/13/22 08:56 109 H 98 12/13/22 08:54 110 H 105/59 L 12/13/22 08:51 111 H 99 12/13/22 08:46 108 H 98 12/13/22 08:41 110 H 98 12/13/22 08:38 109 H 117/64 12/13/22 08:36 110 H 97 12/13/22 08:30 18 12/13/22 08:30 18 12/13/22 08:31 109 H 97 12/13/22 08:26 109 H 97 12/13/22 08:24 106 H 118/66 12/13/22 08:21 109 H 98 12/13/22 08:16 111 H 97 12/13/22 08:11 111 H 97 12/13/22 08:08 110 H 109/56 L 12/13/22 08:06 109 H 96 12/13/22 08:01 113 H 97 12/13/22 07:56 111 H 97 12/13/22 07:54 110 H 104/59 L 12/13/22 07:51 109 H 97 12/13/22 07:46 112 H 98 12/13/22 07:00 20 12/13/22 07:00 20 12/13/22 07:41 135 H 97 12/13/22 07:39 117 H 111/68 12/13/22 07:36 122 H 98 12/13/22 07:31 108 H 98 12/13/22 07:26 104 H 98 12/13/22 07:23 102 H 106/69 12/13/22 07:21 116 H 97 12/13/22 07:16 100 H 97 12/13/22 07:11 107 H 98 12/13/22 07:09 108 H 106/64 12/13/22 07:06 110 H 99 12/13/22 07:01 111 H 97 12/13/22 06:56 106 H 100 12/13/22 06:54 107 H 116/62 89 L 12/13/22 06:51 105 H 100 12/13/22 06:46 107 H 98 12/13/22 06:41 106 H 98 12/13/22 06:38 103 H 118/64 12/13/22 06:36 107 H 97 12/13/22 06:31 103 H 98 12/13/22 06:26 110 H 100 12/13/22 06:24 109 H 132/75 12/13/22 06:21 108 H 97 12/13/22 06:15 36.8 C 12/13/22 06:16 109 H 99 12/13/22 06:11 128 H 139/94 98 12/13/22 06:06 112 H 100 12/13/22 06:01 118 H 99 12/13/22 05:56 114 H 98 12/13/22 05:54 112 H 119/75 12/13/22 05:51 119 H 98 12/13/22 05:46 120 H 98 12/13/22 05:41 122 H 98 12/13/22 05:38 121 H 119/62 12/13/22 05:36 119 H 98 12/13/22 05:31 125 H 98 12/13/22 05:26 108 H 98 12/13/22 05:23 107 H 123/65 12/13/22 05:21 102 H 99 12/13/22 05:16 102 H 98 12/13/22 05:11 100 H 98 12/13/22 05:08 95 H 121/69 12/13/22 05:06 98 H 97 12/13/22 05:01 103 H 98 12/13/22 04:56 102 H 98 12/13/22 04:54 101 H 125/73 12/13/22 04:51 105 H 98 12/13/22 04:46 127 H 97 12/13/22 04:41 102 H 97 12/13/22 04:39 109 H 114/72 12/13/22 04:36 99 H 96 12/13/22 04:31 98 H 96 12/13/22 04:26 97 H 96 12/13/22 04:23 96 H 101/57 L 12/13/22 04:21 99 H 96 12/13/22 04:16 97 H 97 12/13/22 04:11 95 H 97 12/13/22 04:08 88 101/60 12/13/22 04:06 93 H 98 12/13/22 04:00 18 12/13/22 04:00 18 12/13/22 04:01 104 H 98 12/13/22 03:56 87 96 12/13/22 03:54 93 H 100/58 L 90 12/13/22 03:51 90 96 12/13/22 03:46 90 96 12/13/22 03:41 88 96 12/13/22 03:38 88 95/51 L 94 12/13/22 03:36 90 95 12/13/22 03:31 91 H 96 12/13/22 03:26 93 H 98 12/13/22 03:24 90 105/58 L 12/13/22 03:21 91 H 97 12/13/22 03:16 90 97 12/13/22 03:11 91 H 97 12/13/22 03:08 86 102/59 L 12/13/22 03:06 90 97 12/13/22 03:01 89 97 12/13/22 02:56 88 97 12/13/22 02:54 91 H 108/57 L 12/13/22 02:51 112 H 97 12/13/22 02:46 92 H 97 12/13/22 02:41 99 H 98 12/13/22 02:40 102 H 108/71 12/13/22 02:36 90 98 12/13/22 02:30 18 12/13/22 02:30 18 12/13/22 02:31 94 H 98 12/13/22 02:26 97 H 97 12/13/22 02:24 90 112/66 12/13/22 02:20 36.6 C 12/13/22 02:21 91 H 98 12/13/22 02:16 95 H 98 12/13/22 02:11 90 97 12/13/22 02:08 88 113/64 12/13/22 02:06 92 H 97 12/13/22 02:00 18 12/13/22 02:00 18 12/13/22 02:01 94 H 97 12/13/22 01:56 98 H 98 12/13/22 01:53 99 H 105/68 12/13/22 01:51 100 H 96 12/13/22 01:46 121 H 97 12/13/22 01:41 90 97 12/13/22 01:39 92 H 108/64 04/15/23 01:30 18 12/13/22 01:30 18 12/13/22 01:36 96 H 98 12/13/22 01:31 93 H 98 12/13/22 01:26 94 H 98 12/13/22 01:23 97 H 109/64 12/13/22 01:21 91 H 98 12/13/22 01:16 98 H 99 12/13/22 01:11 99 H 98 12/13/22 01:09 90 103/57 L 12/13/22 01:06 94 H 99 12/13/22 01:01 94 H 98 12/13/22 01:00 20 12/13/22 01:00 20 12/13/22 00:56 97 H 99 12/13/22 00:30 18 12/13/22 00:30 18 12/13/22 00:53 93 H 98/55 L 12/13/22 00:51 94 H 99 12/13/22 00:46 94 H 98 12/13/22 00:41 116 H 98 12/13/22 00:39 109/62 12/13/22 00:36 90 98 12/13/22 00:31 94 H 98 12/13/22 00:26 93 H 98 12/13/22 00:24 93 H 91/50 L 12/13/22 00:21 93 H 98 12/13/22 00:16 94 H 99 12/13/22 00:11 97 H 98 12/13/22 00:08 93 H 100/56 L 12/13/22 00:06 94 H 97 12/13/22 00:01 96 H 99 12/13/22 00:00 18 12/13/22 00:00 36.9 C 18 12/12/22 23:56 94 H 99 12/12/22 23:53 89 102/58 L 12/12/22 23:51 91 H 98 12/12/22 23:00 20 12/12/22 23:00 20 12/12/22 23:46 96 H 98 12/12/22 23:41 98 H 98 12/12/22 23:38 95 H 100/58 L 12/12/22 23:36 91 H 99 12/12/22 23:31 97 H 100 12/12/22 23:26 110 H 99 12/12/22 23:27 116 H 92 12/12/22 23:24 85 111/57 L 12/12/22 23:21 89 98 12/12/22 23:16 89 98 12/12/22 23:11 89 98 12/12/22 23:08 92 H 108/59 L 12/12/22 23:06 84 98 12/12/22 23:01 91 H 98 12/12/22 22:56 97 H 106/50 L 100 12/12/22 22:51 102 H 99 12/12/22 22:46 95 H 100 12/12/22 22:41 84 98 12/12/22 22:30 18 12/12/22 22:30 18 12/12/22 22:38 80 91/50 L 12/12/22 22:36 92 H 99 12/12/22 22:31 84 100 12/12/22 22:26 83 94/50 L 98 12/12/22 22:24 81 88/51 L 12/12/22 22:21 86 92 12/12/22 22:00 18 12/12/22 22:00 18 12/12/22 22:16 89 100 12/12/22 22:11 82 99 12/12/22 22:10 93 12/12/22 22:10 82 12/12/22 22:10 82 92/56 L 12/12/22 22:06 90 100 12/12/22 22:01 73 99 12/12/22 21:56 78 99 12/12/22 21:53 73 107/66 12/12/22 21:51 77 98 12/12/22 21:46 78 98 12/12/22 21:41 79 98 12/12/22 21:39 78 106/67 12/12/22 21:36 84 98 12/12/22 21:30 20 12/12/22 21:30 20 12/12/22 21:31 89 99 12/12/22 21:26 94 H 100 12/12/22 21:24 82 105/58 L 12/12/22 21:21 79 100 12/12/22 21:10 36.5 C 12/12/22 21:00 18 12/12/22 21:00 18 12/12/22 21:16 80 100 12/12/22 21:11 83 99 12/12/22 21:06 77 99 12/12/22 21:01 80 108/63 99 12/12/22 20:57 77 107/60 12/12/22 20:56 75 99 12/12/22 20:51 81 102/58 L 98 12/12/22 20:47 75 101/59 L 12/12/22 20:46 77 98 12/12/22 20:41 99 12/12/22 20:41 78 12/12/22 20:41 77 102/64 12/12/22 20:36 77 99 12/12/22 20:37 78 106/64 12/12/22 20:31 83 110/64 99 12/12/22 20:27 80 115/60 12/12/22 20:26 75 97 12/12/22 20:00 20 12/12/22 20:00 20 12/12/22 20:22 77 107/72 12/12/22 20:23 75 113/60 12/12/22 20:21 85 98 12/12/22 20:16 89 98 12/12/22 20:17 88 92/56 L 12/12/22 20:11 79 99/60 L 98 12/12/22 20:07 77 105/59 L 12/12/22 20:06 76 98 12/12/22 20:01 84 99 12/12/22 20:02 83 102/58 L 12/12/22 19:56 76 98 12/12/22 19:57 76 103/57 L 12/12/22 19:51 71 99 12/12/22 19:52 72 98/59 L 12/12/22 19:48 81 103/62 12/12/22 19:46 82 97 12/12/22 19:43 83 102/61 12/12/22 19:41 82 98 12/12/22 19:36 98 12/12/22 19:36 91 H 12/12/22 19:36 88 103/61 12/12/22 19:30 18 12/12/22 19:30 18 12/12/22 19:31 84 98 12/12/22 19:32 83 104/61 12/12/22 19:26 89 99 12/12/22 19:27 85 103/55 L 12/12/22 19:21 94 H 99 12/12/22 19:20 83 104/61 12/12/22 19:18 88 100/60 12/12/22 19:16 89 106/66 98 12/12/22 19:14 86 110/64 12/12/22 19:12 82 100/57 L 12/12/22 19:11 97 12/12/22 19:11 84 12/12/22 19:11 90 91/62 L 12/12/22 19:08 88 112/64 12/12/22 19:06 96 H 12/12/22 19:06 93 H 111/65 97 12/12/22 19:04 90 112/70 12/12/22 19:02 91 H 116/76 12/12/22 19:01 90 98 12/12/22 19:00 89 111/68 12/12/22 18:58 88 106/62 12/12/22 18:56 92 H 100 12/12/22 18:57 95 H 103/67 12/12/22 18:51 81 100 12/12/22 18:46 84 98 12/12/22 18:41 89 100 12/12/22 18:36 88 98 12/12/22 18:31 88 99 12/12/22 18:26 89 99 12/12/22 18:12 81 106/61 12/12/22 17:15 90 113/71 12/12/22 17:00 36.6 C 12/12/22 16:13 83 113/73 12/12/22 15:04 16 12/12/22 15:04 36.7 C 16 12/12/22 15:20 77 107/65 12/12/22 14:13 88 114/82 12/12/22 13:12 86 112/76 12/12/22 12:13 77 115/73 Pain Intensity Abdomen: Pain Intensity: 6 Left Hip: Pain Intensity: 2 Transfer of Care Handoff Completed per policy Notes Mental Status: alert / awake / arousable Patient Amnestic to Procedure: Yes Nausea / Vomiting: adequately controlled Pain: adequately controlled Airway Patency, RR, SpO2: stable & adequate BP & HR: stable & adequate Hydration State: stable & adequate Anesthetic Complications: no major complications apparent and Pt Satisfied with anesthetic care
[2022-12-13] MEDS ORDERED: BENZOCAINE 20% AER SPR 82.5 GM CAN EXT PRN (12:20)
[2022-12-13] MEDS ORDERED: HYDROCORTISONE ACETATE 25 MG SUPP PR PRN (12:20)
[2022-12-13] MEDS ORDERED: SENNA 8.6 MG TAB PO PRN (12:20)
[2022-12-13] MEDS ORDERED: DIPHTHERIA/TETANUS/PERTUSSIS 0.5mL SYR/VIAL (Age 7+yrs) IM ONE (12:20)
[2022-12-13] MEDS ORDERED: MAGNESIUM HYDROXIDE SUSP 30 ML UDC PO PRN (12:20)
[2022-12-13] MEDS ORDERED: SODIUM CHLORIDE 0.9% 250 ML IV PRN (12:31)
[2022-12-13] MEDS ORDERED: OXYTOCIN 30 UNITS in LACTATED RINGER'S 1,000 ML IV SCH (13:00)
[2022-12-13] MEDS: SIMETHICONE 80 MG CHEW PO SCH ×3 (14:14→21:03)
[2022-12-13] MEDS: LACTATED RINGER'S 1,000 ML IV SCH ×2 (14:14→21:03)
[2022-12-13] MEDS: KETOROLAC 30 MG/ML VIAL IV PRN (15:23)
[2022-12-13] MEDS: HYDROXYCHLOROQUINE SULFATE 200 MG TAB PO SCH (21:03)
[2022-12-13] MEDS: DOCUSATE SODIUM 100 MG CAP PO SCH (21:03)
[2022-12-14] MEDS: KETOROLAC 30 MG/ML VIAL IV PRN (03:30)
[2022-12-14] MEDS: LACTATED RINGER'S 1,000 ML IV SCH ×3 (04:22→20:55)
[2022-12-14] MEDS ORDERED: diphenhydrAMINE Capsule 25 MG CAP PO PRN (05:41)
[2022-12-14] MEDS ORDERED: diphenhydrAMINE 50 MG/ML VIAL IV PRN (05:41)
[2022-12-14] MEDS ORDERED: MEPERIDINE HCL 50 MG/ML CARP IV PRN (05:41)
[2022-12-14] MEDS ORDERED: KETOROLAC 30 MG/ML VIAL IV PRN (05:43)
--- NOTE | 2022-12-14 07:33 | Obstetrical Progress Note ---
Date of Service December 14, 2022 Assessment & Plan (1) Failure to progress in labor: Routine post- care today. Subjective Ambulation: ambulating normally Voiding: murphy catheter in place (actually just removed, but patient hasn't voided yet.) Passing Gas:: Yes Diet Tolerance:: regular diet (had emesis yesterday, louie crackers, will try solids again this AM) Lochia:: Small Feeding Type:: breast feeding Physical Exam Constitutional WD/WN, vitals as above Eyes PERRL, conjunctivae normal, anicteric sclerae Neck normal visual inspection Respiratory normal respiratory effort and able to speak in complete sentences; no respiratory distress and no labored breathing Cardiovascular Rate/Rhythm: regular rate and regular rhythm Extremities: no edema Chest (Breasts) Chest: normal inspection of chest Gastrointestinal (Abdomen) Inspection/Auscultation: abdomen normal to inspection Soft, postgravid, incision c/d/i Psychiatric A+Ox3, euthymic affect Genitourinary OB Exam Abdomen: + fundal height Fundus: + firm and + relation to umbilicus (fundus just below umbilicus); not tender Results & Data Vital Signs (Past 12 Hours) Vital Signs Temp Pulse Resp BP Pulse Ox O2 Del Method 12/14/22 04:45 97.7 F 72 18 110/68 99 Room Air 12/14/22 05:07 20 96 12/14/22 04:00 16 95 12/14/22 03:00 18 95 12/14/22 02:00 16 96 12/14/22 01:00 18 98 12/14/22 00:00 16 98 12/14/22 00:00 98.4 F 81 16 109/66 98 Room Air 12/13/22 23:00 18 96 12/13/22 22:19 18 96 12/13/22 21:00 20 97 12/13/22 20:30 Room Air 12/13/22 20:30 98.1 F 76 20 116/70 97 Room Air 12/13/22 20:00 18 96
[2022-12-14] MEDS: METOCLOPRAMIDE HCL INJ 5 MG/ML 2 ML VIAL IV SCH ×3 (08:03→20:55)
[2022-12-14 08:12] LABS: Hematocrit (blood only) 23.8 % (37.0-47.0); Hemoglobin 7.9 g/dl (12.0-16.0); Mean Corpuscular Hemoglobin 29.5 pg (25.0-34.0); Mean Corpuscular Hgb Conc 33.2 g/dL (32.0-36.0); Mean Corpuscular Volume 88.8 fL (80.0-100.0); Mean Platelet Volume 11.5 fL (9.4-12.4); Platelet Count 206 K/uL (130-400); RDW Coefficient of Variation 15.6 % (11.5-14.5); RDW Standard Deviation 50.8 fL (36.4-46.3); Red Blood Count 2.68 M/uL (4.20-5.40)
[2022-12-14 08:22] LABS: Basophils # (auto) 0.03 K/uL (0-0.2); Basophils % (auto) 0.2 %; Eosinophils # (auto) 0.05 K/uL (0-0.50); Eosinophils % (auto) 0.3 %; Immature Granulocytes # (auto) 0.14 K/uL (0.01-0.20); Immature Granulocytes % (auto) 0.9 %; Lymphocytes # (auto) 1.65 K/uL (1.2-3.4); Lymphocytes % (auto) 10.2 %; Monocytes # (auto) 1.25 K/uL (0.11-0.59); Monocytes % (auto) 7.8 %; Neutrophils # (auto) 12.98 K/uL (1.40-6.50); Neutrophils % (auto) 80.6 %; RBC Morphology Unremarkable
[2022-12-14] MEDS: oxyCODONE/ACETAMINOPHEN 5mg/325mg TAB PO PRN ×4 (09:14→22:26)
[2022-12-14] MEDS: IBUPROFEN 600 MG TAB PO PRN ×4 (09:15→22:25)
[2022-12-14] MEDS: FERROUS SULFATE 325 MG TAB PO SCH (13:28)
[2022-12-14] MEDS: SIMETHICONE 80 MG CHEW PO SCH ×4 (13:28→20:47)
[2022-12-14] MEDS: DOCUSATE SODIUM 100 MG CAP PO SCH ×2 (13:29→20:47)
[2022-12-14] MEDS: PRENATAL VITAMIN 1 TAB PO SCH (13:29)
[2022-12-14] MEDS: HYDROXYCHLOROQUINE SULFATE 200 MG TAB PO SCH (20:53)
[2022-12-15] MEDS: oxyCODONE/ACETAMINOPHEN 5mg/325mg TAB PO PRN ×5 (03:22→23:38)
[2022-12-15] MEDS: METOCLOPRAMIDE HCL INJ 5 MG/ML 2 ML VIAL IV SCH ×4 (03:22→19:41)
[2022-12-15] MEDS: IBUPROFEN 600 MG TAB PO PRN ×5 (03:23→23:39)
[2022-12-15 05:59] LABS: Hemoglobin 8.1 g/dl (12.0-16.0)
--- NOTE | 2022-12-15 06:39 | Obstetrical Progress Note ---
Date of Service December 15, 2022 Assessment & Plan (1) Failure to progress in labor: (2) Supervision of normal first : (3) Lupus (systemic lupus erythematosus): Plan Molly is a 27 y/o female who is POD #2 following delivery at 39 6/7 weeks due to FTP -Meeting all milestones -Vital signs reviewed and WNL, Repeat Hemoglobin this a.m. stable -O+/GBS negative/Rubella immune -Follow up in 6 weeks for follow up appointment -Continue routine care Admission and Anticipated Discharge Date Admission Date: December 12, 2022 Supervising Physician Co-Signing Physician Notes Resident Physician Supervision Note: I interviewed and examined the patient. Discussed with Dr. Chang and agree with findings and plan as documented in the note. Any exceptions or clarifications are listed here: POD#2 doing well. Desires to stay today to continue working on . Documented By: Tameka Mayorga, DO Subjective Molly is a 27 y/o female who is POD #2 following delivery at 39 6/7 weeks due to FTP. She has a PMH significant for SLE. She reports feeling well overall this morning. Notes abdominal cramping but states that pain well managed on analgesics. Voiding without issue, murphy catheter removed yesterday. Tolerating meals and able to ambulate some. Has had some nausea but it responds to Reglan. Endorses passing gas, has not had a bowel movement yet. Has some persistent lochia with some improvement this morning. Currently breast feeding. Review of Systems Constitutional: no fever, no chills and no sweats Respiratory: no cough, no dyspnea and no wheezing Cardiovascular: no chest pain, no palpitations and no calf pain Genitourinary: no dysuria Neurologic: no headache(s) Physical Exam Constitutional: WD/WN, vitals as above no acute distress Respiratory: no respiratory distress Auscultation: lungs clear to auscultation bilaterally; no rales, no rhonchi and no wheezes Cardiovascular: RRR, no murmur, no edema Extremities: no calf tenderness and no edema Negative Gil's sign bilaterally. Gastrointestinal (Abdomen): Inspection/Auscultation: normal bowel sounds Genitourinary: Uterine fundus firm, palpable below the umbilicus. Surgical incision site is clean and healing appropriately. No bleeding or discharge noted from wound. Results & Data Vital Signs (Past 12 Hours) Vital Signs Temp Pulse Resp BP Pulse Ox O2 Del Method 12/14/22 23:10 36.7 C 80 18 103/68 99 Room Air 12/14/22 21:40 36.5 C 74 18 105/64 99 Room Air Resident Activity Tracking Resident Involvement: Resident Care Provided Care Provided: OB Delivery
[2022-12-15] MEDS: DOCUSATE SODIUM 100 MG CAP PO SCH ×2 (09:14→19:39)
[2022-12-15] MEDS: SIMETHICONE 80 MG CHEW PO SCH ×4 (09:14→19:39)
[2022-12-15] MEDS: FERROUS SULFATE 325 MG TAB PO SCH (09:14)
[2022-12-15] MEDS: PRENATAL VITAMIN 1 TAB PO SCH (09:15)
--- NOTE | 2022-12-15 17:58 | Electrocardiogram Report ---
Test Reason : Blood Pressure : / mmHG Vent. Rate : 081 BPM Atrial Rate : 081 BPM P-R Int : 148 ms QRS Dur : 102 ms QT Int : 396 ms P-R-T Axes : 063 060 053 degrees QTc Int : 460 ms Normal sinus rhythm Normal ECG When compared with ECG of 05-JUN-2022 12:03, No significant change was found Confirmed by Brian Miller ([id number]) on 12/15/2022 5:58:16 PM Referred By: Ngoc Almeida Confirmed By:Anthony Miller
[2022-12-15] MEDS: HYDROXYCHLOROQUINE SULFATE 200 MG TAB PO SCH (20:31)
[2022-12-16] MEDS: METOCLOPRAMIDE HCL INJ 5 MG/ML 2 ML VIAL IV SCH ×4 (02:20→19:50)
[2022-12-16] MEDS: oxyCODONE/ACETAMINOPHEN 5mg/325mg TAB PO PRN ×6 (04:41→23:21)
[2022-12-16] MEDS: IBUPROFEN 600 MG TAB PO PRN ×5 (04:41→23:20)
--- NOTE | 2022-12-16 07:43 | Obstetrical Progress Note ---
Date of Service December 16, 2022 Assessment & Plan (1) Failure to progress in labor: (2) Supervision of normal first : (3) Lupus (systemic lupus erythematosus): Plan Molly is a 27 y/o female who is POD #3 following delivery at 39 6/7 weeks due to FTP -Meeting all milestones -Vital signs reviewed and WNL, Hemoglobin stable -O+/GBS negative/Rubella immune -Follow up in 6 weeks for follow up appointment -Continue routine care -Anticipate d/c to nesting later today -Provided guidelines/red flags to watch out for regarding chest pain/shortness of breath,etc. Admission and Anticipated Discharge Date Admission Date: December 12, 2022 Supervising Physician Co-Signing Physician Notes Patient seen and evaluated with resident and agree plan. Stable for discharge today Subjective Molly is a 27 y/o female who is POD #3 following delivery at 39 6/7 weeks due to FTP. She has a PMH significant for SLE. She reports feeling well overall this morning. Notes abdominal cramping but states that pain well managed on analgesics. Voiding without issue. Tolerating meals and able to ambulate some. Endorses passing gas. Has some persistent lochia with some improvement this morning. Currently breast feeding. Yesterday had some intermittent sharp chest pain at her left side of the chest, notes it would last for ~1 second at a time. Denies shortness of breath, radiation of pain, calf pain. EKG was completed yesterday which was normal. Today she notes that she noted the pain again briefly while pumping and is wondering if it is actually breast pain. Review of Systems Constitutional: no fever, no chills and no sweats Respiratory: no cough, no dyspnea and no wheezing Cardiovascular: no chest pain, no palpitations and no calf pain Genitourinary: no dysuria Neurologic: no headache(s) Physical Exam Constitutional: WD/WN, vitals as above no acute distress Respiratory: no respiratory distress Auscultation: lungs clear to auscultation bilaterally; no rales, no rhonchi and no wheezes Cardiovascular: RRR, no murmur, no edema Extremities: no calf tenderness and no edema Gastrointestinal (Abdomen): Inspection/Auscultation: normal bowel sounds Psychiatric: A+Ox3, euthymic affect Genitourinary: Surgical incision site clean and healing appropriately. Uterine fundus firm to palpation below umbilicus. Results & Data Vital Signs (Past 12 Hours) Vital Signs Temp Pulse Resp BP 12/15/22 23:40 36.5 C 80 18 119/77 Resident Activity Tracking Resident Involvement: Resident Care Provided Care Provided: OB Delivery
[2022-12-16] MEDS: FERROUS SULFATE 325 MG TAB PO SCH (08:18)
[2022-12-16] MEDS: DOCUSATE SODIUM 100 MG CAP PO SCH ×2 (08:18→21:01)
[2022-12-16] MEDS: SIMETHICONE 80 MG CHEW PO SCH ×4 (08:18→21:01)
[2022-12-16] MEDS: PRENATAL VITAMIN 1 TAB PO SCH (08:18)
[2022-12-16] MEDS: HYDROXYCHLOROQUINE SULFATE 200 MG TAB PO SCH (21:01)
[2022-12-17] MEDS: METOCLOPRAMIDE HCL INJ 5 MG/ML 2 ML VIAL IV SCH ×2 (01:38→08:50)
[2022-12-17] MEDS: oxyCODONE/ACETAMINOPHEN 5mg/325mg TAB PO PRN ×2 (03:37→08:51)
[2022-12-17] MEDS: IBUPROFEN 600 MG TAB PO PRN ×2 (03:37→08:50)
--- NOTE | 2022-12-17 06:28 | Obstetrical Progress Note ---
Date of Service December 17, 2022 Assessment & Plan (1) Failure to progress in labor: (2) Supervision of normal first : (3) Lupus (systemic lupus erythematosus): Plan Molly is a 27 y/o female who is POD #4 following delivery at 39 6/7 weeks due to FTP -Meeting all milestones -Vital signs reviewed and WNL, Hemoglobin stable -O+/GBS negative/Rubella immune -Follow up in 6 weeks for follow up appointment -Continue routine care -Anticipate d/c later today -Provided discharge instructions/red flags to watch out for Admission and Anticipated Discharge Date Admission Date: December 12, 2022 Supervising Physician Co-Signing Physician Notes Resident Physician Supervision Note: I was present with Dr. Chang during the history and exam. I discussed the case with the resident and agree with the findings and plan as documented in the note. Any exceptions or clarifications are listed here: pt doing well, eating, voiding, ambulating, pain well controlled. no cp/sob. , rhpos, ri. ready to go home. abd soft ff 2 down nt, incision c/d/i with dermabond, bruised. ext nt calves. pod #4 s/p c/s. hgb stable. instructions reviewed. f/u 6 wk pp. script already sent yesterday by md provider. Documented By: Fabiola Isaac MD, FACOG Subjective Molly is a 27 y/o female who is POD #4 following delivery at 39 6/7 weeks due to FTP. She has a PMH significant for SLE. She reports feeling well overall this morning. Notes abdominal cramping but states that pain well managed on analgesics. Voiding without issue. Tolerating meals and able to ambulate some. Endorses passing gas. Has some persistent lochia with some improvement this morning. Currently breast feeding. Has had no additional episodes of chest pain. Review of Systems Constitutional: no fever, no chills and no sweats Respiratory: no cough, no dyspnea and no wheezing Cardiovascular: no chest pain, no palpitations and no calf pain Genitourinary: no dysuria Neurologic: no headache(s) Physical Exam Constitutional: WD/WN, vitals as above no acute distress Respiratory: no respiratory distress Auscultation: lungs clear to auscultation bilaterally; no rales, no rhonchi and no wheezes Cardiovascular: RRR, no murmur, no edema Extremities: no calf tenderness and no edema Gastrointestinal (Abdomen): Inspection/Auscultation: normal bowel sounds Psychiatric: A+Ox3, euthymic affect Genitourinary: Uterine fundus firm under umbilicus. Surgical incision site clean and healing appropriately. Results & Data Vital Signs (Past 12 Hours) Vital Signs Temp Pulse Resp BP Pulse Ox O2 Del Method 12/16/22 23:15 36.5 C 74 16 111/72 97 Room Air 12/16/22 19:40 36.9 C 87 18 119/67 95 Room Air Resident Activity Tracking Resident Involvement: Resident Care Provided Care Provided: OB Delivery
[2022-12-17] MEDS: FERROUS SULFATE 325 MG TAB PO SCH (08:50)
[2022-12-17] MEDS: SIMETHICONE 80 MG CHEW PO SCH (08:50)
[2022-12-17] MEDS: PRENATAL VITAMIN 1 TAB PO SCH (08:50)
[2022-12-17] MEDS: DOCUSATE SODIUM 100 MG CAP PO SCH (08:50)
--- NOTE | 2022-12-18 12:09 | Discharge Summary ---
Date of Service December 18, 2022 Admission HPI Per Admitting Provider Patient is a 27-year-old G1, P0 female EDC 12/14/2022 who presents for induction of labor because her has been complicated by SLE history. SSA and SSB antibodies were negative. testing has been reassuring. Last growth scan at 36 weeks reveals an AGA . GBS negative. Her cervix was noted to be unfavorable the day prior to her induction. The cervical balloon will be placed today prior to starting Pitocin augmentation of her labor. Discharge Data Consultations 12/12/22 08:09 Consult Anesthesiology Stat 12/13/22 10:16 Consult Anesthesiology Stat Procedures Performed Operation Date: 12/13/22 11:00 Actual Procedures p Section in LD(Bilateral) - Saniya Lamar MD Hospital Course (1) Failure to progress in labor: section, uncomplicated, with plan for 6 week follow up in office. (2) Supervision of normal first : (3) Lupus (systemic lupus erythematosus): Plan Molly is a 27 y/o female who is POD #3 following delivery at 39 6/7 weeks due to FTP -Meeting all milestones -Vital signs reviewed and WNL, Hemoglobin stable -O+/GBS negative/Rubella immune -Follow up in 6 weeks for follow up appointment -Continue routine care -Anticipate d/c to nesting later today -Provided guidelines/red flags to watch out for regarding chest pain/shortness of breath,etc. Coding Level of Care Code None Diagnoses Failure to progress in labor O62.2 Supervision of normal first Z34.00 Lupus (systemic lupus erythematosus) M32.9
== END 2022-12-17 11:27 | disposition home or self-care (01) | DRG 788 ==
LOC: 4S1 07:52 → 4E2 12-13 15:02